=== PATIENT | female | born 1975 | race Caucasian/White ===

== ENCOUNTER 2020-03-22 17:33 | Emergency (ER) | payer OTHER ==
[2020-03-22] MEDS ORDERED: MECLIZINE HCL 12.5 MG TAB PO ONE (18:17)
[2020-03-22] MEDS ORDERED: SODIUM CHLORIDE 0.9% 1000ML 1,000 ML IVS ONE (18:17)
--- NOTE | 2020-03-22 18:18 | ED.PDOC ---
History of Present Illness - General Chief Complaint: General Stated Complaint: DIZZINESS AND N/V Time Seen by Provider: 03/22/20 17:34 Source: patient, RN notes reviewed, Vital Signs reviewed Exam Limitations: no limitations - History of Present Illness Initial Comments: 44 yo F comes in with acute onset of room spinning. 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 Never happened before. still feels like the room is spinning. no recent head atrauma. no neck pain. Otherwise no chest pain, shortness of breath. Allergies/Adverse Reactions: Allergies NO KNOWN ALLERGY Allergy (Verified 03/22/20 17:53) Home Medications: Ambulatory Orders Meclizine HCl [Meclizine 25] 25 mg PO TID PRN #15 tab 03/22/20 Ondansetron HCl [Zofran] 4 mg PO TID PRN #15 tab 03/22/20 Review of Systems - Review of Systems Constitutional: Denies: chills, fever EENTM: Denies: blurred vision, ear pain, throat pain, mouth pain Respiratory: Denies: cough, short of breath Cardiology: Denies: chest pain, palpitations Gastrointestinal/Abdominal: States: nausea, vomiting. Denies: abdominal pain Genitourinary: Denies: discharge Musculoskeletal: Denies: back pain, muscle pain Neurological: Denies: headache, numbness, paresthesia, tingling, tremors, weakness Endocrine: Denies: unexplained weight gain, unexplained weight loss Hematologic/Lymphatic: Denies: easy bleeding, easy bruising Past Medical History (General) - Patient Medical History Hx Seizures: No Hx Asthma: No Hx Cardiac Disorders: No Hx Congestive Heart Failure: No Hx Hypertension: No Hx Diabetes: No Hx Gastroesophageal Reflux: No Hx Cancer: No Hx Hepatitis C: No - Vaccination History Hx Tetanus, Diphtheria Vaccination: No Hx Influenza Vaccination: Yes Hx Pneumococcal Vaccination: No Immunizations Up to Date: No - Social History Hx Tobacco Use: No Hx Alcohol Use: Yes - SOCIALY Hx Substance Use: No Hx Substance Use Treatment: No Hx Depression: No - Female History Patient is a Female of Child Bearing Age (10 -59 yrs old): Yes Family Medical History - Family History Mother Family History: No Known Living Status: Still Living Physical Exam - Physical Exam General Appearance: Alert, Comfortable, No apparent distress, Well Developed, Well Groomed, Well Hydrated, Well Nourished Eye Exam: bilateral normal, bilateral other - no nystagmus noted Ears, Nose, Throat: hearing grossly normal, normal ENT inspection, normal pharynx Neck: non-tender, full range of motion, supple, normal inspection Respiratory: chest non-tender, lungs clear, normal breath sounds, no respiratory distress, no accessory muscle use Cardiovascular/Chest: normal peripheral pulses, regular rate, rhythm, no edema, no gallop, no JVD, no murmur Peripheral Pulses: radial,right: 2+, radial,left: 2+ Gastrointestinal/Abdominal: normal bowel sounds, non tender, soft, no organomegaly, no pulsatile mass Rectal Exam: deferred Back Exam: normal inspection, no CVA tenderness, no vertebral tenderness Extremity: normal range of motion, non-tender, normal inspection, no pedal edema, no calf tenderness Neurologic: plate drying machine tender II-XII nml as tested, no motor/sensory deficits, alert, normal mood/affect, oriented x 3, other - negative HINTS exam, no pronator drift, good truncal tone Skin Exam: normal color, warm/dry Progress - Progress Progress: 03/22/20 19:41 attempted to modified eplys manuever, did not help. unidrectional horizontal nystagmus noted. given 8 mg zofran by EMS, given an additional here, also given reglan, meclezine. also given 2 mg valium. Still have n/v. Unable to walk due to continued vertigo. Orthostatics negative. Discussed with Katherine Tony who will admit the patient for observation. Will given small dose of PO valium. The data reviewed when caring for this patient included: nurse notes, prior records, etc. The history and assessments from nurses notes were reviewed and considered, and the patient's home medication list was also reviewed and considered. My assessment and the results of testing completed here in the ED were discussed with the patient/family. All questions were answered, and they express understanding of my assessment and the plan. patient transferred to the floor in stable condition. Ruth Ann Arias DO #801 03/22/20 21:09 03/22/20 21:43 prior to being transferred to floor patient notes she is feeling much better. n/v improved, dizziness improved. Neurologic exam repeated and negative. Patient requesting to go home as she feels better. They have been instructed to return if their symptoms worsen, and have been asked to follow up with their primary care physician to recheck today's presenting complaint. Strict return precautions given. I have reviewed medication, benefits, alternatives and side effects. Patient decided to proceed with medication. Ruth Ann Arias DO #801 03/22/20 21:44 - Results/Orders Results/Orders: Laboratory Results WBC 11.4 K/mm3 (4.8-10.8) H 03/22/20 19:00 RBC 4.37 M/mm3 (4.20-5.40) 03/22/20 19:00 Hgb 12.9 gm/dL (12.0-16.0) 03/22/20 19:00 Hct 38.9 % (36.0-47.0) 03/22/20 19:00 MCV 89.0 fl (81.0-99.0) 03/22/20 19:00 MCH 29.4 pg (27.0-31.0) 03/22/20 19:00 MCHC 33.0 g/dL (33.0-37.0) 03/22/20 19:00 RDW 13.6 % (11.5-14.5) 03/22/20 19:00 Plt Count 375 K/mm3 (130-400) 03/22/20 19:00 MPV 7.8 fl (7.40-10.4) 03/22/20 19:00 Absolute Neuts (auto) 9.90 K/uL (1.8-6.8) H 03/22/20 19:00 Absolute Lymphs (auto) 1.10 K/uL (1.0-3.4) 03/22/20 19:00 Absolute Monos (auto) 0.30 K/uL (0.2-0.8) 03/22/20 19:00 Absolute Eos (auto) 0.00 K/uL (0.0-0.4) 03/22/20 19:00 Absolute Basos (auto) 0.00 K/uL (0.0-0.1) 03/22/20 19:00 Neutrophils % 87.0 % (42.0-78.0) H 03/22/20 19:00 Lymphocytes % 9.4 % (20.0-50.0) L 03/22/20 19:00 Monocytes % 3.1 % (2.0-9.0) 03/22/20 19:00 Eosinophils % 0.1 % (1.0-5.0) L 03/22/20 19:00 Basophils % 0.4 % (0.0-2.0) 03/22/20 19:00 Sodium 137 mmol/L (135-145) 03/22/20 19:00 Potassium 4.2 mmol/L (3.6-5.0) 03/22/20 19:00 Chloride 104 mmol/L (101-111) 03/22/20 19:00 Carbon Dioxide 19 mmol/L (21-31) L 03/22/20 19:00 Anion Gap 18.2 (12-18) H 03/22/20 19:00 BUN 12 mg/dL (7-18) 03/22/20 19:00 Creatinine 0.66 mg/dL (0.6-1.3) 03/22/20 19:00 BUN/Creatinine Ratio 18.2 (10-20) 03/22/20 19:00 Random Glucose 95 mg/dL (70-105) 03/22/20 19:00 Serum Osmolality 273.4 mOsm/L (275-295) L 03/22/20 19:00 Calcium 9.2 mg/dL (8.4-10.2) 03/22/20 19:00 Total Bilirubin 0.6 mg/dL (0.2-1.0) 03/22/20 19:00 AST 18 IU/L (10-42) 03/22/20 19:00 ALT 14 IU/L (10-60) 03/22/20 19:00 Alkaline Phosphatase 54 IU/L (42-121) 03/22/20 19:00 Serum Total Protein 7.6 gm/dL (6.4-8.2) 03/22/20 19:00 Albumin 4.4 g/dl (3.2-5.5) 03/22/20 19:00 Globulin 3.2 gm/dL (2.3-3.5) 03/22/20 19:00 Albumin/Globulin Ratio 1.4 (1.1-1.9) 03/22/20 19:00 Lipase 33 U/L (22-51) 03/22/20 19:00 - EKG/XRAY/CT CT: no ICH, no acute process. - Additional EKG/XRAY/Consults Time Called: 20:21 Consult/PCP: Katherine tony - admission for intractible nausea. Departure - Departure Clinical Impression: Vertigo Nausea and vomiting Qualifiers: Vomiting type: unspecified Vomiting Intractability: intractable Qualified Code(s): R11.2 - Nausea with vomiting, unspecified Time of Disposition: 20:22 Disposition: Discharge to Home or Self Care Condition: Fair Departure Forms: ED Discharge - Pt. Copy, Patient Portal Self Enrollment Instructions: Vertigo (a Type of Dizziness), Vestibular Exercises Diet: resume usual diet Activity: increase activity as tolerated Prescriptions: Meclizine HCl [Meclizine 25] 25 mg PO TID PRN #15 tab PRN Reason: Dizziness Ondansetron HCl [Zofran] 4 mg PO TID PRN #15 tab PRN Reason: Vomiting Home Medications: Ambulatory Orders Meclizine HCl [Meclizine 25] 25 mg PO TID PRN #15 tab 03/22/20 Ondansetron HCl [Zofran] 4 mg PO TID PRN #15 tab 03/22/20
[2020-03-22] MEDS ORDERED: ONDANSETRON INJ 4 MG/2 ML VIAL IV ONE (18:45)
--- NOTE | 2020-03-22 19:09 | CT ---
EXAM: CT Head Without Intravenous Contrast CLINICAL HISTORY: The patient is 44 years old and is Female; dizziness TECHNIQUE: Axial computed tomography images of the head/brain without intravenous contrast. Sagittal and coronal reformatted images were created and reviewed. This CT exam was performed using one or more of the following dose reduction techniques: automated exposure control, adjustment of the mA and/or kV according to patient size, and/or use of iterative reconstruction technique. COMPARISON: No relevant prior studies available. FINDINGS: Brain: Unremarkable. No hemorrhage. No significant white matter disease. No edema. Ventricles: Unremarkable. No ventriculomegaly. Bones/joints: Unremarkable. No acute skull fracture. Soft tissues: Unremarkable. Sinuses: Unremarkable as visualized. No acute sinusitis. Mastoid air cells: No significant mastoid fluid. IMPRESSION: No acute intracranial findings. No hemorrhage. Electronically signed by: Gracie Lai MD 03/22/2020 7:07 PM [facility]
[2020-03-22] MEDS ORDERED: METOCLOPRAMIDE HCL INJ 10 MG/2 ML VIAL IV ONE (19:34)
[2020-03-22] MEDS ORDERED: diazePAM 2 MG TAB PO ONE (20:04)
[2020-03-22 23:12] VITALS: BP 95/40; TEMP 97.1; O2SAT 99
== END 2020-03-22 23:05 | disposition home or self-care (01) ==
LOC: ER 17:33
DX: R42 Dizziness and giddiness (principal); R11.2 Nausea with vomiting, unspecified; Z20.828 Contact with and (suspected) exposure to other viral communicable diseases
CPT/HCPCS: 36415; 70450; 80053; 83690; 85025; 87635; J2405; J2765; J7030